=== PATIENT | female | born 1945 | race Hispanic/Latino ===

== ENCOUNTER 2018-07-15 11:01 | Emergency (ER) | payer MEDICARE, BC ==
[2018-07-15 11:07] VITALS: BMI 24.9
--- NOTE | 2018-07-15 11:51 | ED PDOC ---
HPI: Abdomen Time Seen by Provider: 07/15/18 11:40 Chief Complaint (Nursing): Abdominal Pain History Per: Patient Onset/Duration Of Symptoms: Days (2) Current Symptoms Are (Timing): Still Present Severity: Mild Location Of Pain/Discomfort: RUQ, Epigastric Quality Of Discomfort: Unable To Describe Associated Symptoms: Nausea. denies: Fever, Vomiting, Diarrhea Exacerbating Factors: None Alleviating Factors: None Additional Complaint(s): Epigastric RUQ abd pain assoc with nausea since last night Denies vomiting diarrhea or fever. Past Medical History Vital Signs: Last Vital Signs Temp 98 F 07/15/18 11:07 Pulse 83 07/15/18 11:07 Resp 20 07/15/18 11:07 BP 173/77 H 07/15/18 11:07 Pulse Ox 98 07/15/18 11:50 - Medical History PMH: Gastritis, HTN, Malignancy (Breast) - Family History Family History: States: Unknown Family Hx - Allergies Allergies/Adverse Reactions: Allergies Allergy/AdvReac Type Severity Reaction Status Date / Time Penicillins Allergy Mild RASH Verified 07/15/18 11:14 Review of Systems Constitutional: Negative for: Fever Gastrointestinal: Positive for: Nausea, Abdominal Pain. Negative for: Vomiting , Diarrhea Genitourinary Female: Negative for: Dysuria, Frequency Physical Exam - Physical Exam Appears: Positive for: Non-toxic, No Acute Distress Skin: Positive for: Normal Color, Warm, DRY Gastrointestinal/Abdominal: Positive for: Bowel Sounds, Soft. Negative for: Tenderness Extremity: Positive for: Normal ROM Neurologic/Psych: Positive for: Alert, Oriented - Laboratory Results Result Diagrams: 07/15/18 11:53 07/15/18 11:53 - ECG O2 Sat by Pulse Oximetry: 98 Disposition - Clinical Impression Clinical Impression: Cholecystitis - Patient ED Disposition Is Patient to be Admitted: Transfer of Care - Disposition Disposition: Transfer of Care Disposition Time: 15:02 Condition: FAIR Forms: [employer] (Serbian) Patient Signed Over To: Polo Schmidt
[2018-07-15] MEDS: Sodium Chloride 0.9% 1,000 ML IV STA (11:57)
[2018-07-15 12:05] LABS: BASO # 0.1 K/uL (0.0-0.2); BASO % 0.9 % (0.0-2.0); EOS # 0.1 K/uL (0.0-0.7); EOS % 1.4 % (0.0-4.0); HEMOGLOBIN 14.3 g/dL (12.0-16.0); LYMPH % 16.1 % (20.0-40.0); MEAN CELL VOLUME 83.7 fl (81.0-99.0); MEAN CORPUSCULAR HEMOGLOBIN 27.7 pg (27.0-31.0); MEAN CORPUSCULAR HGB CONC 33.1 g/dL (33.0-37.0); MEAN PLATELET VOLUME 7.1 fl (7.2-11.7); MONO # 0.5 K/uL (0.0-0.8); MONO % 7.1 % (0.0-10.0); NEUT # 4.8 K/uL (1.8-7.0); NEUT % 74.5 % (50.0-75.0); NRBC % 0.3 % (0.0-0.0); RBC 5.15 Mil/uL (3.80-5.20); RED CELL DISTRIBUTION WIDTH 13.6 % (11.5-14.5); WHITE BLOOD COUNT 6.4 K/uL (4.8-10.8)
[2018-07-15 12:17] LABS: ALB/GLOB RATIO 1.3 (1.0-2.1); ALBUMIN 3.9 g/dL (3.5-5.0); ALT/SGPT 609 U/L (9-52); AST/SGOT 357 U/L (14-36); BLOOD UREA NITROGEN 13 mg/dl (7-17); CALCIUM 9.5 mg/dL (8.4-10.2); GFR NON-AFRICAN AMERICAN > 60; LIPASE 85 U/L (23-300)
--- NOTE | 2018-07-15 13:25 | US ---
Date of service: 07/15/2018 HISTORY: RUQ pain COMPARISON: None available TECHNIQUE: Sonographic evaluation of the right upper quadrant of the abdomen. FINDINGS: LIVER: Measures 14.5 cm in length and appears within normal limits of echogenicity. No focal hepatic mass identified. Main portal vein appears patent. No intrahepatic bile duct dilatation. GALLBLADDER: Gallbladder sludge. No gallstones. Mild gallbladder wall thickening measuring approximately 4 mm. 5 mm immobile echogenic non shadowing focus, likely gallbladder polyp. Negative sonographic Morocho's sign as assessed by the electric meter inspector. COMMON BILE DUCT: Measures 7 mm. PANCREAS: Not well-visualized. RIGHT KIDNEY: Measures 9.6 x 5.2 x 4.7 cm. No obstructing calculus or hydronephrosis identified. AORTA: Limited visualization appears grossly unremarkable. IVC: Limited visualization appears grossly unremarkable. OTHER FINDINGS: None . IMPRESSION: 5 mm probable gallbladder polyp. No consensus exist regarding management of polyps in the size range. Current recommendations indicate continued surveillance with serial follow-up imaging at 3, 6, and 12 months. Gallbladder sludge. No evidence of gallstones. Mild gallbladder wall thickening. Negative sonographic Morocho's sign.
[2018-07-15] MEDS ORDERED: Ciprofloxacin 400mg/200ml D5W 400 MG/200 ML BAG IVPB ONE (14:13)
[2018-07-15] MEDS ORDERED: metroNIDAZOLE 500mg/100ml NS 100 ML IVPB ONE (14:13)
[2018-07-15] MEDS: metroNIDAZOLE 500mg/100ml NS 100 ML IVPB STA (14:20)
[2018-07-15] MEDS: Ciprofloxacin 400mg/200ml D5W 400 MG/200 ML BAG IVPB STA (14:20)
--- NOTE | 2018-07-15 14:58 | CARD ---
APPROVED REPORT Date of service: 07/15/2018 <Conclusion> Normal sinus rhythm Possible Left atrial enlargement Inferior infarct, age undetermined Abnormal ECG
[2018-07-15 15:51] VITALS: RESP 18
[2018-07-15 16:40] VITALS: TEMP 97.6
--- NOTE | 2018-07-15 17:19 | ED PDOC ---
- Laboratory Results Result Diagrams: 07/15/18 11:53 07/15/18 11:53 - ECG O2 Sat by Pulse Oximetry: 100 - Progress ED Course And Treament: 1500: Stable. AAOx3. Took over care from Dr. Love. FU on surgery and pt. decision to stay for eval or leave. 1700: Surgery resident will see pt. 1800: Stable. Surgery saw pt. and discussed with Dr. Steven. Not a cholecystitis. Wants pt. to be dc and fu with her gi and pcp. Pt. with no pain or nausea/vomit. Tolerated PO. AAOx3. at bedside and agree with pt. Disposition - Clinical Impression Clinical Impression: Biliary colic - POA Present On Arrival: None - Disposition Referrals: [facility] [Outside] - 07/18/18 Bryon Dias MD [Staff Provider] - 07/19/18 Disposition: Routine/Home Disposition Time: 18:15 Condition: STABLE Additional Instructions: Return if not better in 3 days. See the photographic equipment inspector in 3 days. You have elevated liver enzymes and sludge in your gall bladder. Instructions: Acute Abdomen (Belly Pain) Forms: [employer] ([place])
--- NOTE | 2018-07-15 18:14 | CP.PCM.CON ---
History of Present Illness - History of Present Illness History of Present Illness: General Surgery Dr. Steven 72 y/o F w/ PMHx of Breast Ca, HTN, GERD presents to the ED c/o RUQ/epigastric abd pain. Pain started overnight localized to epigastric region w/ radiation to RUQ/LUQ and low back. Pt denies having similar pain in the past. Pt reports pain originally relived by Advil/Tylenol last evening at initial onset; however , this AM, nothing seemed to make pain better. Nothing made pain worse. Pt tolerated tea and toast for breakfast. Pt reports 1 episode self-resolving nausea this AM, in addition to bilious reflux this. Pt reports returning from vacation recently, during which she had rich, fatty diet. Pt admits to recent constipation that self-resolved. Pt denies F/C, CP, SOB, N/V, D/C. Abd US performed in ED showed GB sludge w/ no GB wall thickening, pericholecystic fluid, or CBD dilation. Labs revealed elevated LFTs but no leukocytosis Pt currently pain free. PMHx: see above, ER/MS (-) breast cancer x2 requiring chemo/XRT Meds: amlodipine ALL: PCN - swelling/edema PSHx: B/L mastectomy, reconstruction SHx: denies tobacco, drug use; occasional EtOH FHx: non contributory Review of Systems - Review of Systems All systems: reviewed and no additional remarkable complaints except (see HPI) Past Patient History - Past Social History Smoking Status: Never Smoked - CARDIAC Hx Hypertension: Yes - GASTROINTESTINAL Hx Gastritis: Yes - PSYCHIATRIC Hx Substance Use: No - SURGICAL HISTORY Hx Surgeries: Yes Hx Mastectomy: Yes (left breast) Other/Comment: Lumpectomy. Mastectomy - ANESTHESIA Hx Anesthesia: Yes Meds Allergies/Adverse Reactions: Allergies Allergy/AdvReac Type Severity Reaction Status Date / Time Penicillins Allergy Mild RASH Verified 07/15/18 11:14 - Medications Medications: Current Medications Sodium Chloride (Sodium Chloride 0.9%) 1,000 mls @ 100 mls/hr IV .Q10H STA Stop: 07/15/18 21:47 Last Admin: 07/15/18 11:57 Dose: 100 mls/hr Physical Exam - Constitutional Appears: Non-toxic, No Acute Distress - Head Exam Head Exam: NORMAL INSPECTION - Eye Exam Eye Exam: Normal appearance - ENT Exam ENT Exam: Mucous Membranes Moist - Respiratory Exam Respiratory Exam: NORMAL BREATHING PATTERN. absent: Accessory Muscle Use, Respiratory Distress - Cardiovascular Exam Cardiovascular Exam: REGULAR RHYTHM. absent: Bradycardia, Tachycardia - GI/Abdominal Exam GI & Abdominal Exam: Soft. absent: Distended, Firm, Guarding, Rebound, Tenderness - Expanded GI/Abdominal Exam Expanded Expanded GI & Abdominal Exam: absent: Morocho's Sign - Extremities Exam Extremities exam: Positive for: normal inspection - Neurological Exam Neurological exam: Alert, Oriented x3 - Psychiatric Exam Psychiatric exam: Normal Affect, Normal Mood - Skin Skin Exam: Dry, Intact, Normal Color, Warm Results - Vital Signs Recent Vital Signs: Last Vital Signs Temp 97.6 F 07/15/18 16:39 Pulse 65 07/15/18 16:39 Resp 18 07/15/18 16:39 BP 146/75 07/15/18 16:39 Pulse Ox 100 07/15/18 17:19 - Labs Result Diagrams: 07/15/18 11:53 07/15/18 11:53 Labs: Laboratory Results - last 24 hr 07/15/18 07/15/18 11:53 11:53 WBC 6.4 RBC 5.15 Hgb 14.3 Hct 43.1 MCV 83.7 MCH 27.7 MCHC 33.1 RDW 13.6 Plt Count 242 MPV 7.1 L Neut % (Auto) 74.5 Lymph % (Auto) 16.1 L Scurry % (Auto) 7.1 Eos % (Auto) 1.4 Baso % (Auto) 0.9 Neut # (Auto) 4.8 Lymph # (Auto) 1.0 Scurry # (Auto) 0.5 Eos # (Auto) 0.1 Baso # (Auto) 0.1 Sodium 140 Potassium 3.8 Chloride 106 Carbon Dioxide 27 Anion Gap 11 BUN 13 Creatinine 0.6 L Est GFR ( Amer) > 60 Est GFR (Non-Af Amer) > 60 Random Glucose 128 H Calcium 9.5 Total Bilirubin 2.4 H AST 357 H ALT 609 H Alkaline Phosphatase 201 H Total Protein 6.8 Albumin 3.9 Globulin 2.9 Albumin/Globulin Ratio 1.3 Lipase 85 - Imaging and Cardiology US - abdomen Status: Image reviewed by me, Report reviewed by me Assessment & Plan - Assessment and Plan (Free Text) Assessment: 72 y/o F w/ biliary cholic and elevated LFTs likely 2/2 medication vs Hx chemo/ XRT - PO challenge - cleared for discharge w/ instructions to follow up w/ PMD for further workup - Pt instructed to return to the ED if pain/symptoms return/worsen - no surgical intervention at this time - Pt can f/u w/ Dr. Steven or prior general surgeon for future cholecystectomy Pt discussed w/ Dr. Maurizio Correia DO PGY3
[2018-07-15 18:40] VITALS: BP 137/77; PULSE 69; O2SAT 97
== END 2018-07-15 18:45 | disposition home or self-care (01) ==
LOC: H.ER 11:01
DX: K80.50 Calculus of bile duct without cholangitis or cholecystitis without obstruction (principal); R94.5 Abnormal results of liver function studies; I10 Essential (primary) hypertension; Z85.3 Personal history of malignant neoplasm of breast; Z88.0 Allergy status to penicillin; Z90.12 Acquired absence of left breast and nipple
CPT/HCPCS: 76705; 80053; 83690; 85025; 87040; 93005; 96365; 96367; 96375; 99283; J0744; J2405; J7030